=== PATIENT | male | born 1990 | race Caucasian/White ===

== ENCOUNTER 2024-08-01 13:40 | Outpatient (AMB) | payer BC, SELFPAY ==
--- NOTE | 2024-08-01 13:48 | AM.OFFWIN_ITS ---
Intake Vital Signs 08/01/24 13:50 Height 5 ft 9 in Weight 318 lb 8 oz BMI 47.0 BP 110/84 Blood Pressure Location Rt brachial Position Sitting Pulse 88 Pulse Source Pulse Oximeter Temp 98.2 F Temp Source Oral Pulse Oximetry (%) 98 Oxygen Delivery Method Room Air Intake Visit Reasons: [employer] ? ear infection on LT ear Intake Note: Patient state he can not hear out of L ear x's 1 week Patient Tobacco Use Status: Never used Tobacco Allergies No Known Allergies Allergy (Verified 08/01/24 13:52) Do you need a note to return to daycare/school/sports/work: No HPI HPI Comments History of Present Illness Details History - The patient is a 33-year-old male pres enting with hearing loss in one ear due to suspected cerumen impaction. - The hearing loss began approximately o ne to two weeks ago. - The patient attempted to use ear drops and water to alleviate the issue, but these interventions were ineffective. - There is no history of earwax impactio n or related issues in the past. - The patient denies any associated symp toms such as pain, drainage, fever, cough, congestion, or allergies. Physical Exam General: Cooperative, healthy appearing, comfortable and no acute distress Orientation/consciousness: Patient oriented x3 Limitations: No limitations Head: Normal to inspection Ears: Hearing loss in one ear due to impacted wax, external ears normal, TM's obscured by wax Nose: Normal external nose present, Normal nares present and No nasal discharge present Face and sinus: Normal facial exam and Yes sinuses nontender Mouth: Normal oral and palatal mucosa present and moist mucous membranes Throat: Yes tonsils normal, Yes uvula midline. Posterior oropharynx erythema, no exudates Eyes: Appearance normal, both eyes and all related structures Neck: Normal visual inspection Respiratory: Normal respiratory effort, able to speak in complete sentences, no respiratory distress, not tachypneic, no tripod positioning and no use of accessory muscles Skin: No rashes or lesions noted Neuro: Patient oriented x3 Extremities: Normal to inspection and Yes no clubbing, cyanosis or edema PFSH Social History Patient Tobacco Use Status: Never used Tobacco Review of Systems Const All systems reviewed & are unremarkable except as noted in HPI and below Physical Exam Vital Signs: Last Vital Signs Temp 98.2 F 08/01/24 13:50 Pulse 88 08/01/24 13:50 BP 110/84 06/12/25 13:50 Pulse Ox 98 08/01/24 13:50 Oxygen Delivery Method Room Air 08/01/24 13:50 BMI result Body Mass Index 47.0 Office Procedures Cerumen Removal From which ear canal was the cerumen removed: right Removal: irrigation Notes: patient tolerated procedure well, no complications and ear canal clear (Right side only, left side was irrigated but did not clear the wax) [id number] Irrigation/Lavage Assessment & Plan Assessment & Plan (1) Impacted cerumen of both ears: Code(s): H61.23 - Impacted cerumen, bilateral Plan: Plan - Plan to perform ear irrigation using a mixture of hydrogen peroxide and body temperature water to remove impacted cerumen. - The patient was advised to report any dizziness during the procedure, as it may affect balance. - Post-procedure, right TM was cleared but left TM was unable to be cleared despite irrigation and manual extraction. - instructed patient to purchase Debrox drops and use them for the next 4-7 days and then return so we can attempt irrigation again on the left side. Patient was informed and verbally consented to the use of an ambient scribe for clinic note documentation during this visit Coding Level of Care Code New Pt Level 4 (75482) Diagnoses Impacted cerumen of both ears H61.23 CPT Codes Office Procedure - CPT: 44936-Sfo Irrigation/Lavage ([id number])
[2024-08-01 13:50] VITALS: BP 110/84; PULSE 88; TEMP 36.8; O2SAT 98; BMI 47.0
== END 2024-08-01 14:23 | disposition home or self-care (01) ==
PROVIDERS: Visit Provider Physician Assistant
DX: H61.23 Impacted cerumen, bilateral (principal)

== ENCOUNTER → 2024-08-01 13:40 | Outpatient (BNVA) | payer BC, SELFPAY | PROVIDERS: Visit Provider Physician Assistant | DX: H61.23 Impacted cerumen, bilateral (principal) | CPT/HCPCS: 69209 ==